=== PATIENT | female | born 1985 | race Caucasian/White ===

== ENCOUNTER 2016-11-08 21:10 | Emergency (ER) | payer SELFPAY ==
[2016-11-08 21:53] VITALS: BP 120/80
== END 2016-11-08 21:53 | disposition home or self-care (01) ==
LOC: ED 21:10
DX: L23.9 Allergic contact dermatitis, unspecified cause (principal); R21 Rash and other nonspecific skin eruption

== ENCOUNTER 2017-06-06 00:50 | Emergency (ER) | payer SELFPAY ==
[~2017-06-06] VITALS: Ht 157.5 cm; Wt 74.0 kg
[2017-06-06 01:50] VITALS: BP 135/87
== END 2017-06-06 01:50 | disposition left against medical advice (07) ==
LOC: ED 00:50
DX: Z53.21 Procedure and treatment not carried out due to patient leaving prior to being seen by health care provider (principal)

== ENCOUNTER 2017-10-26 21:28 | Emergency (ER) | payer SELFPAY | END 2017-10-26 22:33 | disposition left against medical advice (07) | LOC: ED 21:28 | DX: Z53.21 Procedure and treatment not carried out due to patient leaving prior to being seen by health care provider (principal) ==

== ENCOUNTER 2018-05-10 18:35 | Emergency (ER) | payer MEDICAID ==
[~2018-05-10] VITALS: Ht 170.2 cm; Wt 76.7 kg
[2018-05-10 19:05] VITALS: Ht 170.2 cm; Wt 76.7 kg
[2018-05-10 23:35] LABS: BASOPHIL % 0.1 % (0-2); PLATELET COUNT 283 x10^3mcL (130-400)
[2018-05-10 23:39] LABS: UA SPECIFIC GRAVITY >=1.030 (1.005-1.035); microscopic required? YES; urine erythrocyte 3+ (NEGATIVE)
[2018-05-10 23:40] LABS: RED CELL DISTRIBUTION WIDTH 14.9 % (11.5-14.5)
[2018-05-10 23:42] LABS: CALCIUM 8.4 mg/dL (8.5-10.1); CARBON DIOXIDE 27.1 mmol/L (21-32); CHLORIDE SERUM 101 mmol/L (98-107); CREATININE SERUM 0.8 mg/dL (0.6-1.0); GFR1 > 60 mL/min; GLUCOSE SERUM 137 mg/dL (74-106); POTASSIUM SERUM 3.5 mmol/L (3.5-5.1); SODIUM SERUM 139 mmol/L (136-145)
[2018-05-10 23:46] LABS: ALBUMIN 3.5 g/dL (3.4-5.0); ALKALINE PHOSPHATASE 68 U/L (46-116); ALT/SGPT 42 U/L (14-59); AST/SGOT 18 U/L (15-37); BILIRUBIN TOTAL 0.1 mg/dL (0.20-1.00); TOTAL PROTEIN, SERUM 7.1 g/dL (6.4-8.2)
[2018-05-11 00:46] VITALS: BP 105/67
== END 2018-05-11 00:46 | disposition home or self-care (01) ==
LOC: ED 18:35
PROVIDERS: Emergency Medicine
DX: J11.1 Influenza due to unidentified influenza virus with other respiratory manifestations (principal); Z88.1 Allergy status to other antibiotic agents; Z88.6 Allergy status to analgesic agent
CPT/HCPCS: 87804; J2405; J3010; J7030

== ENCOUNTER 2018-05-12 14:03 | Emergency (ER) | payer MEDICAID ==
[~2018-05-12] VITALS: Ht 157.5 cm; Wt 75.7 kg
[2018-05-12 14:21] VITALS: Ht 157.5 cm; Wt 75.7 kg
[2018-05-12 19:16] VITALS: BP 122/89
== END 2018-05-12 19:16 | disposition home or self-care (01) ==
LOC: ED 14:03
DX: J11.1 Influenza due to unidentified influenza virus with other respiratory manifestations (principal); Z88.1 Allergy status to other antibiotic agents; Z88.6 Allergy status to analgesic agent
CPT/HCPCS: J2405; J3010; J7030